=== PATIENT | male | born 1980 | race Caucasian/White ===

== ENCOUNTER 2025-08-19 18:27 | Emergency (ER) | payer BC ==
--- OUTSIDE RECORDS SUMMARY | 2025-08-19 18:31 | XMS REPORT | Continuity of Care Document ---
Author Name Unknown Address [address] [facility] [place] [address] [facility] Address [address] [facility] [place] [address] Care Team Providers Care Painter Mirror Name Role Phone ANTOINETTE SHOOK Ritika Primary Care Physician Unavailab MATTI Serrano Attending Clinician UnavailHammad Vazquez Attending Clinician Un available Matti Watson MD Attending Clinician [phone], [facility] Attending Clinician Hammad Mon Admitting Clinician Un available MATTI WATSON Admitting Clinician Alia juarez Payers Payer Name Policy Type Policy Number Effective Date Expirati on Date Source [facility] [id number] 2024 00:00:00 Allergies, Adverse Reactions, Alerts Allergy Name Allergy Type Status Severity Reaction(s) Onset Date Inactive Date Treating Clinician Comments Source NO KNOWN ALLERGIE S Drug Class Active [facility] Social History Social Habit Start Date Stop Date Quantity Comments Source [facility] use and exposure 2025-04-11 00:00:00 2025-04-11 00:00:00 User of smokeless tobacco [facility] History of Social function 2025-02-28 00:00:00 2025-02-28 00:00:00 [facility] Sex assigned at 1980 00:00:00 1980 00:00:00 [facility] Smoking Status Start Date Stop Date Source Tobacco smoking consumption unknown [facility] Never smoked tobacco [facility] Medications Ordered Medication Name Filled Medication Name Start Date Stop Date Current Medication? Ordering Clinician Indication Dosage Frequency Signature (SIG) Comments Components Source NIFEdipine XL 30 mg 24 hr tablet 07-14 00:00: 00 Yes [id number] 30mg Take 1 tablet by mouth in the morning and 1 tablet in the evening. [facility] spironolact one (ALDACTONE) 25 mg tablet 07-14 00:00: 00 Yes [id number] 25mg Take 1 tablet by mouth in the morning. [facility] semaglutide (OZEMPIC) 0.25 mg or 0.5 mg (2 mg/3 mL) PnIj 04-11 14:58: 24 Yes .25mg inject 0.25 mg under the skin weekly. [facility] NIFEdipine XL 60 mg 24 hr tablet 04-11 00:00: 00 07-14 00:00 :00 No [id number] 60mg Take 1 tablet by mouth in the morning and 1 tablet in the evening. [facility] perflutren protein-A microsphr (OPTISON) injection 3 mL 03-20 18:45: 00 03-20 18:58 :00 No [id number] 3mL 3 mL, IV Push, ONCE, 1 dose, On Thu03/20/25 at 1345, Routine [facility] NIFEdipine XL 30 mg 24 hr tablet 03-06 00:00: 00 2025- 05-27 00:00 :00 No 30mg Take 1 tablet by mouth in the morning and 1 tablet in the evening. [facility] dextroamphe tamine-amph etamine 30 mg tablet 02-28 15:03: 22 Yes 30mg Take 1 tablet by mouth in the morning and 1 tablet in the evening. [facility] metFORMIN 500 mg tablet 02-28 14:56: 38 Yes 500mg Take 1 tablet by mouth in the morning and 1 tablet in the evening. [facility] lisinopriL 20 mg tablet 02-28 14:39: 23 02-28 00:00 :00 No 20mg Take 1 tablet by mouth in the morning. [facility] olmesartan (BENICAR) 20 mg tablet 02-28 00:00: 00 Yes [id number] 104 20mg Take 1 tablet by mouth in the morning and 1 tablet in the evening. [facility] hydrocodone -acetaminop hen (NORCO 5) 5-325 mg tablet 01-31 00:00: 00 07-14 00:00 :00 No 1{tbl} Take 1-2 Tabs by mouth every 4 (four) hours as needed for Pain. [facility] ibuprofen (MOTRIN) 800 mg tablet 01-31 00:00: 00 07-14 00:00 :00 No 800mg Take 1 Tab by mouth every 6 (six) hours as needed for Pain. [facility] cyclobenzap rine (FLEXERIL) 10 mg tablet 01-31 00:00: 00 07-14 00:00 :00 No 10mg Take 1 Tab by mouth 3 (three) times daily. [facility] Immunizations Ordered Immunization Name Filled Immunization Name Date Status Comments Source TD, NOS 2012-02-01 00:00:00 Completed [facility] Vital Signs Vital Name Observation Time Observation Value Comments S agnes Systolic blood pressure 2025-07-14 19:20:00 133 mm[Hg] [facility] Diastolic blood pressure 2025-07-14 19:20:00 82 mm[Hg] [facility] Heart rate 2025-07-14 19:20:00 89 /min [facility] Respiratory rate 2025-07-14 19:20:00 20 /min [facility] Body weight 2025-07-14 19:20:00 145.922 kg [facility] BMI 2025-07-14 19:20:00 40.21 kg/m2 [facility] Oxygen saturation in Arterial blood by Pulse oximetry 2025-07-14 19:20:00 97 /min [facility] Systolic blood pressure 2025-04-11 19:43:00 190 mm[Hg] his personal [facility] Diastolic blood pressure 2025-04-11 19:43:00 103 mm[Hg] his personal [facility] Heart rate 2025-04-11 19:41:00 74 /min [facility] Body height 2025-04-11 19:37:00 190.5 cm [facility] Body weight 2025-04-11 19:37:00 149.279 kg [facility] BMI 2025-04-11 19:37:00 41.13 kg/m2 [facility] Oxygen saturation in Arterial blood by Pulse oximetry 2025-04-11 19:37:00 99 /min [facility] Systolic blood pressure 2025-02-28 19:54:00 189 mm[Hg] [facility] Diastolic blood pressure 2025-02-28 19:54:00 115 mm[Hg] [facility] Heart rate 2025-02-28 19:54:00 92 /min [facility] Respiratory rate 2025-02-28 19:37:00 21 /min [facility] Body height 2025-02-28 19:37:00 190.5 cm [facility] Body weight 2025-02-28 19:37:00 148.372 kg [facility] BMI 2025-02-28 19:37:00 40.88 kg/m2 [facility] Oxygen saturation in Arterial blood by Pulse oximetry 2025-02-28 19:37:00 97 /min [facility] Procedures Procedure Date / Time Performed Performing Clinician Source THYROID STIMULATING HORMONE 2025-02-28 20:25:00 Matti Watson [facility] COMP. METABOLIC PANEL (47042) 2025-02-28 20:25:00 Matti Watson [facility] CBC WITH DIFF 2025-02-28 20:25:00 Matti Watson [facility] GLYCOSYLATED HEMOGLOBIN (A1C) 2025-02-28 20:25:00 Matti Watson [facility] N-TERMINAL PRO-BNP 2025-02-28 20:25:00 Matti Watson [facility] Encounters Start Date/Time End Date/Time Encounter Type Admission Type Attending [facility] Care Department Encounter ID Source 2025-07-14 14:30:00 2025-07-14 14:45:53 Office Visit [facility] 1.2.840.114 350.1.13.10 4.2.7.2.[id number] [facility] 2025-07-07 11:56:00 2025-07-07 11:56:00 Outpatient Hammad Marcelino [facility]AT[facility] [id number] [facility] 2025-03-21 00:00:00 2025-04-22 18:21:56 Patient Secure Matti Cheung [facility] 1.2.840.114 350.1.13.10 4.2.7.2.[id number] [facility] 2025-04-11 14:00:00 2025-04-11 15:00:07 Office Visit MATTI FOSTER [facility] 1.2.840.114 350.1.13.10 4.2.7.2.[id number] [facility] 2025-04-11 14:00:00 2025-04-11 14:00:00 Outpatient MATTI FOSTER [facility] [id number] [facility] 2025-02-28 00:00:00 2025-04-01 18:18:52 Patient Secure Msdavid Matti Watson [facility] 1.2.840.114 350.1.13.10 4.2.7.2.[id number] [facility] 2025-03-22 00:00:00 2025-03-22 11:51:46 Telephone Matti Watson [facility] 1.2.840.114 350.1.13.10 4.2.7.2.[id number] [facility] 2025-03-20 12:53:24 2025-03-20 23:59:00 Outpatient R MATTI WATSON [facility] [id number] [facility] 2025-03-20 12:53:24 2025-03-20 23:59:00 Hospital Encounter Matti Watson [facility] 1.2.840.114 350.1.13.10 4.2.7.2.[id number] [facility] 2025-03-06 00:00:00 2025-03-06 21:40:48 Telephone Matti Watson [facility] 1.2.840.114 350.1.13.10 4.2.7.2.[id number] [facility] 2025-02-28 00:00:00 2025-03-01 10:36:36 Patient Secure Msg Matti Watson [facility] 1.2.840.114 350.1.13.10 4.2.7.2.[id number] [facility] 2025-03-01 00:00:00 2025-03-01 10:28:13 Telephone [facility] 1.2.840.114 350.1.13.10 4.2.7.2.[id number] 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 2025-02-28 14:00:00 2025-02-28 15:12:12 Office Visit Matti Watson [facility] 1.2.840.114 350.1.13.10 4.2.7.2.[id number] [facility] 2025-02-28 14:00:00 2025-02-28 15:12:12 Outpatient R WALTER MATTI [facility] [id number] [facility] Results Test Description Test Time Test Comments Results Result Co mments Source [facility] [id number] 22:20:29 * Test Item Value Reference Range Interpretation Comme nts TSH (test code = 8041546908) 3.83 0.45-4.70 Biotin has been reported to cause a negative bias, interpret results relative to patient's use of biotin. Lab Interpretation (test code = 65196-9) Normal [facility] Zrz-Vcs3337-03-15 21:59:05* Test Item Value Reference Range Interpretation Comme nts NT-proBNP (test code = 00975-3) 75 pg/mL <=125 Lab Interpretation (test cod e = 43735-5) Normal [facility] (72902)2025-02-28 21:51:03* Test Item Value Reference Range Interpretation Comme nts NA (test code = 6059842153) 137 mmol/L 135-145 K (test code = 6824347938) 3.8 mmol/L 3.5-5.0 CL (test code = 5771134360) 101 mmol/L 98-108 CO2 TOTAL (test code = 1892131446) 27 mmol/L 23-31 AGAP (test code = 7896192717) 9 2-16 BUN (test code = 8135385772) 16 mg/dL 7-23 GLUCOSE (test code = 8201337598) 171 mg/dL 70-110 H CREATININE (test code = 2160-0) 0.99 mg/dL 0.60-1.25 TOTAL BILI (test code = 4745612590) 0.7 mg/dL 0.1-1.1 CALCIUM (test code = 7111268940) 9 mg/dL 8.6-10.6 T PROTEIN (test code = 1957587555) 7.2 g/dL 6.3-8.2 ALBUMIN (test code = 3772517736) 4 g/dL 3.5-5.0 ALK PHOS (test code = 9613606292) 88 U/L 34-122 ALTv (test code = 1742-6) 19 U/L 5-50 AST(SGOT) (test code = 0516064218) 24 U/L 13-40 eGFR (test code = 34642-8) 96.3 mL/min/1.73m2 CKD-EPI eGFR (2020). Assuming creatinine has been stable day-to-day for at least three months, the eGFR indicates Category G1 (>= 90 mL/min/1.73 m2) Lab Interpretation (test code = 76797-0) Abnormal [facility] with [id number] 21:30:20* Test Item Value Reference Range Interpretation Comme nts WBC (test code = 6690-2) 7.29 4.20-10.70 RBC (test code = 789-8) 5.65 4.26-5.52 H HGB (test code = 718-7) 16.4 g/dL 12.2-16.4 HCT (test code = 4544-3) 49.8 % 38.4-49.3 H MCV (test code = 787-2) 88.1 fL 81.7-95.6 MCH (test code = 785-6) 29 pg 26.1-32.7 MCHC (test code = 786-4) 32.9 g/dL 31.2-35.0 RDW-SD (test code = 18876-9) 39.1 fL 38.5-51.6 RDW-CV (test code = 788-0) 12.2 % 12.1-15.4 PLT (test code = 777-3) 187 150-328 MPV (test code = 26969-8) 10.3 fL 9.8-13.0 NRBC/100 WBC (test code = 8767588886) 0 0.0-10.0 NRBC x10^3 (test code = 9781542802) See_Comment [Automated messa ge] The system which generated this result transmitted reference range: 10*3/?L. The reference range was not used to interpret this result as normal/abnormal. GRAN MAT (NEUT) % (test code = 770-8) 50.2 % IMM GRAN % (test code = 0513233108) 0.4 % LYMPH % (test code = 736-9) 35.3 % MONO % (test code = 5905-5) 9.6 % EOS % (test code = 713-8) 4.1 % BASO % (test code = 706-2) 0.4 % GRAN MAT x10^3(ANC) (test code = 4242482556) 3.66 10*3/uL 1.99-6.95 IMM GRAN x10^3 (test code = 8604102551) 0.03 10*3/uL 0.00-0.06 LYMPH x10^3 (test code = 731-0) 2.57 10*3/uL 1.09-3.23 MONO x10^3 (test code = 742-7) 0.7 10*3/uL 0.36-1.02 EOS x10^3 (test code = 711-2) 0.3 10*3/uL 0.06-0.53 BASO x10^3 (test code = 704-7) 0.03 10*3/uL 0.01-0.09 Lab Interpretation (test code = 00684-7) Abnormal [facility] Notes Date/Time Note Provider Source 2025-03-22 11:42:07 Images from the original note were not included. Called to inform patient of results and recommendations as detailed below. Educated patient regarding DASH diet and blood pressure log. Answered patient questions. Patient verbalized understanding and stated he will start log and send it via [employer] Matti Watson MD P Cardiology Nurse Echocardiogram shows evidence of underlying hypertensive heart disease. No significant valve normalities noted. Preserved LV systolic function noted. Please ask him to bring the blood pressure log for the upcoming office visit or send it to us for review [facility] 2025-03-06 16:48:[address] Watson. Add Procardia XL 30mg twice daily to what pt is taking. Pt notified of recommendations and to keep bp log. Report to us in 1 week with readings. Pt verbalized understanding. Rx forwarded to [facility] Kelley Luciano RN [facility] 2025-03-06 16:37:26 Pt changed his bp med from Lisinopril 20mg to olmesartan 20mg on Thursday03/03/25. Bp readings 187/112 203/108 220/128 Today 227/112 HR in the 80's. Pt does not want to go to ER. Will talk to Dr. Watson and call pt back. T [facility] 2025-03-06 16:26:17 Rc Talamantes is a 45 year old male reporting BP 227/112 HR 84; wants to speak with nurse. Has medication questions. [phone] Warm transferred to clinic nurse [facility] 2025-03-01 10:31:30 Images from the original note were not included. YANETH labs 02/28/25 faxed to PCP Antoinette Trujillo at [facility] Matti Watson MD P Cardiology Nurse Mild elevated A1c. Please fax the labs done today to his PCP. Analy Mckeon RN [facility] 2025-03-01 10:25:47 Images from the original note were not included. My chart message sent. Also spoke to patient regarding labs and new prescription, patient verbalized understanding. Matti Watson MD P Cardiology Nurse Labs dated 02/28/2025 shows hemoglobin stable at 16.4, platelet count stable at 187, potassium stable at 3.8, creatinine 0.99, NT Pampe normal at 25, LFTs within normal limits, TSH normal. Awaiting A1c. Lisinopril 20 mg daily changed to Benicar 20 mg twice daily. Prescription sent. [facility] 2025-02-28 14:30:00 Images from the original note were not included. Venipuncture collection performed by clean technique on the both anticubitus. Total of 2 attempts were made. Slight pressure and a bandage/dressing were applied to the site(s). The patient experienced no complications. The following specimens were processed according to instructions and sent to [facility] laboratories per lab order on 02/28/2025 : LT BLUE SST 1 RED LAV 2 PPT DK GREEN (LiHep) DK GREEN (SodH) GARCÍA DK BLUE (K2) DK BLUE (S) ACD Blood Culture NIPT/NTD [facility] 2025-02-28 14:30:00 Labs dated 02/28/2025 shows hemoglobin stable at 16.4, platelet count stable at 187, potassium stable at 3.8, creatinine 0.99, NT Pampe normal at 25, LFTs within normal limits, TSH normal. Awaiting A1c. Lisinopril 20 mg daily changed to Benicar 20 mg twice daily. Prescription sent. [facility] [employer] 2025-02-28 14:30:00 Mild elevated A1c. Please fax the labs done today to his PCP. [facility] [employer]
[2025-08-19] MEDS ORDERED: KETOROLAC 30 MG/ML INJ ONE (19:45)
--- NOTE | 2025-08-19 20:28 | RAD REPORT ---
Exam:Shoulder Right 2+ Views History: Right shoulder pain Findings: No fracture or dislocation seen
--- NOTE | 2025-08-19 20:54 | ER ---
Nurse's Notes [facility] Name: Robson Lorenzana Age: 45 yrs Sex: Male : 1980 Arrival Date: 08/19/2025 Time: 18:27 Bed 14 Private MD: Diagnosis: Contusion of right shoulder;Fall on same level from slipping, tripping and stumbling with subsequent striking against object Presentation: 08/19 18:49 Chief complaint: Patient states: [place], hurting me1 R shoulder. Unable to lift arm up at side. Pain 02/23. Coronavirus screen: Vaccine status: Patient reports receiving the 2nd dose of the covid vaccine. Ebola Screen: No symptoms or risks identified at this time. Initial Sepsis Screen: Does the patient meet any 2 criteria? No. Patient's initial sepsis screen is negative. Does the patient have a suspected source of infection? No. Patient's initial sepsis screen is negative. Risk Assessment: Do you want to hurt yourself or someone else? Patient reports no desire to harm self or others. Onset of symptoms was August 17, 2025. 18:49 Method Of Arrival: Amb[facility] 18:49 Acuity: ELLE 4 me1 Triage Assessment: 21:15 Injury Description:. ss12 Historical: - Allergies: 18:51 No Known Allergies; me1 - PMHx: 18:51 Hypertensive disorder; me1 - PSHx: 18:51 None; me1 - Immunization history:: Adult Immunizations up to date. - Infectious Disease History:: Denies. - Social history:: Smoking status: Patient reports use of chewing tobacco. Reported history of juuling and/or vaping. Screenin:00 Tuberculosis screening: No symptoms or risk factors identified. ss12 21:13 [facility] ED Fall Risk Assessment (Adult) History of falling in the last 3 months, ss12 including since admission No falls in past 3 months (0 pts) Confusion or Disorientation No (0 pts) Intoxicated or Sedated No (0 pts) Impaired Gait No (0 pts) Mobility Assist Device Used No (0 pt) Altered Elimination No (0 pt) Score/Fall Risk Level 0 - 2 = Low Risk Oriented to surroundings, Maintained a safe environment, Educated pt \T\ family on fall prevention, incl call for assistance when getting out of bed, Assessed \T\ reinforced patient's understanding of fall precautions. Abuse screen: Denies threats or abuse. Denies injuries from another. Nutritional screening: No deficits noted. Assessment: 19:00 General: Appears in no apparent distress. comfortable, Behavior is calm, cooperative, ss12 quiet. Pain: Complains of pain in right should and arm Pain does not radiate. Pain currently is 7 out of 10 on a pain scale. Quality of pain is described as aching, throbbing, Pain began suddenly. Neuro: No deficits noted. Level of Consciousness is awake, alert, obeys commands, Oriented to person, place, time, situation. Cardiovascular: Capillary refill < 3 seconds Patient's skin is warm and dry. Respiratory: No deficits noted. Airway is patent Respiratory effort is even, unlabored, Respiratory pattern is regular, symmetrical. GI: No deficits noted. No signs and/or symptoms were reported involving the gastrointestinal system. : No deficits noted. No signs and/or symptoms were reported regarding the genitourinary system. EENT: No deficits noted. No signs and/or symptoms were reported regarding the EENT system. Derm: No deficits noted. No signs and/or symptoms reported regarding the dermatologic system. Musculoskeletal: No deficits noted. Circulation, motion, and sensation intact. 20:00 Reassessment: Patient appears in no apparent distress at this time. Patient and/or ss12 family updated on plan of care and expected duration. Pain level reassessed. Patient is alert, oriented x 3, equal unlabored respirations, skin warm/dry/pink. 21:05 Reassessment: Patient appears in no apparent distress at this time. Patient and/or ss12 family updated on plan of care and expected duration. Pain level reassessed. Patient is alert, oriented x 3, equal unlabored respirations, skin warm/dry/pink. Vital Signs: 18:49 BP 148 / 100; Pulse 79; Resp 18; Temp 98.3; Pulse Ox 99% ; Weight 145.15 kg; Height 6 me1 ft. 3 in. ; Pain 4/10; 19:30 BP 135 / 93; Pulse 78; Resp 16; Pulse Ox 96% on R/A; ss12 21:12 BP 140 / 87; Pulse 80; Resp 16; Pulse Ox 96% on R/A; ss12 18:49 Body Mass Index 40.00 (145.15 kg, 190.5 cm) me1 18:49 Pain Scale: Adult me1 ED Course: 18:31 Patient arrived in ED. cj3 18:37 Jesse Chahal PA-C is PHCP. cp 18:37 Bennie Foreman MD is Attending Physician. cp 18:51 Triage completed. me1 18:51 Arm band placed on Patient placed in an exam room. me1 20:04 XRAY Shoulder RIGHT 2 view In Process Unspecified. EDMS 20:09 Earnest Tinoco, RN is Primary Nurse. ss12 20:53 Anish Villa MD is Referral Physician. cp 21:14 Patient has correct armband on for positive identification. Provided Education on: plan ss12 of care. 21:14 No provider procedures requiring assistance completed. ss12 21:15 Patient did not have IV access during this emergency room visit. ss12 Administered Medications: 20:15 Drug: Ketorolac IM 60 mg IM once; may give if no kidney problems Route: IM; Site: right ss12 deltoid; 20:45 Follow up: Response: No adverse reaction; Pain is decreased ss12 Medication: 21:14 VIS not applicable for this client. ss12 Outcome: 20:54 Discharge ordered by MD. cp 21:14 Patient left the ED. vk 21:15 Discharged to home ambulatory, ss12 21:15 Condition: stable 21:15 Discharge instructions given to patient, family, Instructed on discharge instructions, follow up and referral plans. Demonstrated understanding of instructions, follow-up care, Prescriptions given X 2, Signatures: Dispatcher [employer]DA[employer] Jesse Chahal PA-C PA-C cp Eddleman, Michelle, RN RN me1 Nayely Black Celeste 3 Earnest Tinoco, NOMI RN ss12
--- NOTE | 2025-08-19 20:54 | EDPHYS ---
Physician Documentation [facility] Name: Robson Lorenzana Age: 45 yrs Sex: Male : 1980 Arrival Date: 08/19/2025 Time: 18:27 Bed 14 Private MD: ED Physician Bennie Foreman HPI: 08/19 19:00 This 45 yrs old Male presents to ER via Ambulatory with complaints of Shoulder Injury - cp RT. 19:00 The patient or guardian complains of an injury, pain, that is acute. right shoulder. cp Context: slip and fall onto right shoulder. Onset: The symptoms/episode began/occurred this past . 19:00 Modifying factors: The symptoms are aggravated by lifting right arm. Associated signs cp and symptoms: Pertinent negatives: chest pain, diaphoresis, neck pain, Numbness in right hand and right arm. Severity of symptoms: in the emergency department the symptoms are unchanged, despite home interventions. Treatment prior to arrival includes: no previous treatment. Historical: - Allergies: 18:51 No Known Allergies; me1 - PMHx: 18:51 Hypertensive disorder; me1 - PSHx: 18:51 None; me1 - Immunization history:: Adult Immunizations up to date. - Infectious Disease History:: Denies. - Social history:: Smoking status: Patient reports use of chewing tobacco. Reported history of juuling and/or vaping. ROS: 19:05 MS/extremity: Positive for decreased range of motion, pain, of the right shoulder, cp Negative for deformity, paresthesias, 19:05 Eyes: Negative for injury, pain, redness, and discharge, cp 19:05 Constitutional: Negative for body aches, chills, fever, poor PO intake, 19:05 Neck: Negative for pain with movement, pain at rest, stiffness, bony tenderness, 19:05 Cardiovascular: Negative for chest pain, edema, palpitations, 19:05 Respiratory: Negative for cough, shortness of breath, wheezing, 19:05 Abdomen/GI: Negative for abdominal pain, vomiting, diarrhea, constipation, 19:05 Back: Negative for pain at rest, pain with movement, 19:05 Neuro: Negative for altered mental status, headache, numbness, weakness, 19:05 All other systems are negative, Exam: 19:10 Constitutional: The patient appears in no acute distress, alert, awake, cp non-diaphoretic, non-toxic, well developed, well nourished, uncomfortable, 19:10 Head/Face: Normocephalic, atraumatic. cp 19:10 Neck: C-spine: vertebral tenderness, is not appreciated, crepitus, is not appreciated, ROM/movement: pain, is not appreciated, limited range of motion, is not appreciated, 19:10 Chest/axilla: Inspection: normal, Palpation: crepitus, is not appreciated, tenderness, is not appreciated, 19:10 Cardiovascular: Rate: normal, Rhythm: regular, JVD: is not appreciated, 19:10 Respiratory: the patient does not display signs of respiratory distress, Respirations: normal, no use of accessory muscles, no retractions, labored breathing, is not present, Breath sounds: are clear throughout, no decreased breath sounds, no stridor, no wheezing, 19:10 Abdomen/GI: Inspection: abdomen appears normal, Palpation: abdomen is soft and non-tender, in all quadrants, 19:10 Musculoskeletal/extremity: Extremities: noted in the right shoulder: pain, lateral side and anterior tenderness to palpation, pain with passive ROM, There is no evidence of decreased ROM, deformity, the right hand and right arm Sensation intact. 19:10 Neuro: Orientation: to person, place \T\ time. Mentation: is normal, Vital Signs: 18:49 BP 148 / 100; Pulse 79; Resp 18; Temp 98.3; Pulse Ox 99% ; Weight 145.15 kg; Height 6 me1 ft. 3 in. ; Pain 4/10; 19:30 BP 135 / 93; Pulse 78; Resp 16; Pulse Ox 96% on R/A; ss12 21:12 BP 140 / 87; Pulse 80; Resp 16; Pulse Ox 96% on R/A; ss12 18:49 Body Mass Index 40.00 (145.15 kg, 190.5 cm) me1 18:49 Pain Scale: Adult me1 MDM: 18:45 Medical Screening Exam initiated cp 20:53 Data reviewed: vital signs, nurses notes, radiologic studies, plain films. 20:53 Differential diagnosis: Anterior dislocation with fracture, Anterior dislocation cp without fracture, Posterior dislocation with fracture, Posterior dislocation without fracture, tendonitis, fracture, contusion. I considered the following discharge prescriptions or medication management in the emergency department Medications were administered in the Emergency Department. See MAR. Independent interpretation of the following test(s) in the Emergency Department X-Ray: My interpretation is images of right shoulder negative for fracture and/or dislocation. Counseling: I had a detailed discussion with the patient and/or guardian regarding the historical points, exam findings, and any diagnostic results supporting the discharge/admit diagnosis, radiology results, the need for outpatient follow up, a orthopedic surgeon, to return to the emergency department if symptoms worsen or persist or if there are any questions or concerns that arise at home. Response to treatment: the patient's symptoms have mildly improved after treatment, and as a result, I will discharge patient. 08/19 18:53 Order name: XRAY Shoulder RIGHT 2 view; Complete Time: 20:35 cp 08/19 19:57 Order name: Sling; Complete Time: 20:44 cp Administered Medications: 20:15 Drug: Ketorolac IM 60 mg IM once; may give if no kidney problems Route: IM; Site: right ss12 deltoid; 20:45 Follow up: Response: No adverse reaction; Pain is decreased ss12 Disposition Summary: 08/19/25 20:54 Discharge Ordered Notes: Location: Home cp Problem: new cp Symptoms: have improved cp Condition: Stable cp Diagnosis - Contusion of right shoulder cp - Fall on same level from slipping, tripping and stumbling with subsequent striking cp against object Followup: cp - With: Anish Villa MD - When: 2 - 3 days - Reason: Recheck today's complaints Discharge Instructions: - Discharge Summary Sheet cp - Contusion cp - Shoulder Pain cp - Shoulder Range of Motion Exercises cp - Shoulder Sprain cp Forms: - Medication Reconciliation Form cp - Antibiotic Education cp - Prescription Opioid Use cp - Patient Portal Instructions cp - Leadership Thank You Letter cp Prescriptions: - Diclofenac Sodium 75 mg Oral Tablet Sustained Release - take 1 tablet ORAL route 2 times per day; 30 tablet; Refills: 0, Product cp Selection Permitted - methocarbamol 750 mg Oral tablet - take 1 tablet ORAL route every 6-8 hours; 30 tablet; Refills: 0, Product cp Selection Permitted Signatures: Dispatcher [employer] Jesse Abdul PA-C PA-C cp Eddleman, Michelle, RN RN me1 Earnest Tinoco RN RN ss12 Corrections: (The following items were deleted from the chart) 18:54 18:54 Shoulder 1 View+[email or web address] ordered. EDMS EDMS
[2025-08-19 21:18] VITALS: TEMP 98.3
[2025-08-19 21:20] VITALS: O2SAT 96
[2025-08-19 21:22] VITALS: BP 140/87
== END 2025-08-19 21:14 | disposition home or self-care (01) ==
LOC: ER 18:27
DX: S40.011A Contusion of right shoulder, initial encounter (principal); W01.198A Fall on same level from slipping, tripping and stumbling with subsequent striking against other object, initial encounter; I10 Essential (primary) hypertension
CPT/HCPCS: 96372; 99284; J1885